=== PATIENT | female | born 1995 | race Asian ===

== ENCOUNTER 2017-04-19 18:36 | Emergency (ER) | payer SELFPAY ==
[2017-04-19] MEDS ORDERED: NS 1,000 ML IV ONE (18:46)
--- NOTE | 2017-04-19 18:46 | EDPHY ---
H & P Time Seen by Provider: 04/19/17 18:37 HPI/ROS: CHIEF COMPLAINT: M1, "trying to starve myself to " HISTORY OF PRESENT ILLNESS: 22-year-old female history of depression, not on antidepressants, arrives via ambulance on an M1 hold stating that she has stopped eating or drinking for the past 3 days trying "starve herself to ". Denies self-injury. She has not been taking her levothyroxine. Denies hallucination. Denies self-injury. Denies complaints of physical pain or discomfort. REVIEW OF SYSTEMS: A ten point review of systems was performed and is negative with the exception of the items mentioned in the HPI PAST MEDICAL & SURGICAL HISTORY: Depression. Hypothyroidism SOCIAL HISTORY:nonsmoker. No alcohol or drug use. PHYSICAL EXAM (Prior to examination, patient consented to physical exam, hands were washed and my usual and customary physical exam procedures followed) 1) GENERAL: Well-developed, well-nourished, alert and oriented. 2) HEAD: Normocephalic, atraumatic 3) HEENT: Pupils equal, round, reactive to light bilaterally. Sclera anicteric. Nasopharynx, oropharynx, clear, no lesions. Dry mucous membranes 4) NECK: Full range of motion, no meningeal signs. 5) LUNGS: Clear auscultation bilaterally, no wheezes, no rhonchi, no retractions. 6) HEART: Regular rate and rhythm, no murmur, no heave, no gallop. 7) ABDOMEN: No guarding, no rebound, no focal tenderness, negative McBurney's, negative Zuniga's, negative Rovsing's, negative peritoneal sign, 8) MUSCULOSKELETAL: Moving all extremities, no focal areas of tenderness, no obvious trauma. No peripheral edema or discoloration. 9) BACK: No CVA tenderness, no midline vertebral tenderness, no fluctuance, no step-off, no obvious trauma, no visual or palpable abnormality. 10) SKIN: No rash, no petechiae. 11) Psychiatric: Patient is oriented X 3, there is no agitation. Tearful, depressed flat affect DIFFERENTIAL DIAGNOSIS: in no particular order including but limited to hypovolemia, depression, suicidal ideation (Donna,D Anabell) Constitutional: Initial Vital Signs Temperature (C) 37 C 04/19/17 18:53 Heart Rate 92 04/19/17 18:53 Respiratory Rate 16 04/19/17 18:53 Blood Pressure 142/85 H 04/19/17 18:53 O2 Sat (%) 97 04/19/17 18:53 O2 Delivery Mode Room Air Allergies/Adverse Reactions: No Known Allergies Allergy (Unverified 04/19/17 19:09) Home Medications: Medication Instructions Recorded Levothyroxine 04/19/17 Medical Decision Making ED Course/Re-evaluation: 6:45 p.m.: Patient states that she has not eaten or drank in 3 days. Will administer IV hydration for suspected volume depletion, check laboratory studies and consult with mental health manager oracle.Care of patient under supervision of secondary supervising physician Dr Gracía . (Reid Thompson) The patient was evaluated and managed by the physician's reference assistant. My cosignature indicates that I reviewed the chart and I agree with the findings and plan of care as documented. I am the secondary supervising physician. ( Letitia García) 1248: This patient been evaluated by mental health. And psychiatry was consulted for care. They would like to discharge her from the emergency room. She denies wanting to be suicidal wanting to harm herself or anybody else. She contracts for safety. She will be given follow-up resources. I did go and see speak with her. She has no complaints. She denies being suicidal wanting to hurt herself or anybody else. with psychiatry was consulted (Fabrice Gallardo) - Data Points Laboratory Results: Laboratory Results 04/19/17 18:54 04/19/17 18:54 04/19/17 04/19/17 04/19/17 19:40 18:54 18:54 WBC RBC Hgb Hct MCV MCH MCHC RDW Plt Count MPV Neut % (Auto) Lymph % (Auto) Porter % (Auto) Eos % (Auto) Baso % (Auto) Nucleat RBC Rel Count Absolute Neuts (auto) Absolute Lymphs (auto) Absolute Monos (auto) Absolute Eos (auto) Absolute Basos (auto) Absolute Nucleated RBC Immature Gran % Immature Gran # Sodium 144 mEq/L mEq/L (134-144) Potassium 4.4 mEq/L mEq/L (3.5-5.2) Chloride 104 mEq/L mEq/L (97-110) Carbon Dioxide 19 mEq/l L mEq/l (22-31) Anion Gap 21 mEq/L H mEq/L (8-16) BUN 15 mg/dL mg/dL (7-23) Creatinine 0.8 mg/dL mg/dL (0.6-1.0) Estimated GFR > 60 Glucose 64 mg/dL L mg/dL (70-100) Calcium 10.4 mg/dL mg/dL (8.5-10.4) TSH 1.990 uIU/mL uIU/mL (0.465-4.680) Beta HCG, Qual NEGATIVE Salicylates < 1.0 mg/dL L mg/dL (2.0-20.0) Urine Opiates Screen NEGATIVE (NEGATIVE) Acetaminophen < 10 mcg/mL L mcg/mL (10-30) Urine Barbiturates NEGATIVE (NEGATIVE) Ur Phencyclidine Scrn NEGATIVE (NEGATIVE) Ur Amphetamine Screen NEGATIVE (NEGATIVE) U Benzodiazepines Scrn NEGATIVE (NEGATIVE) Urine Cocaine Screen NEGATIVE (NEGATIVE) U Marijuana (THC) Screen NEGATIVE (NEGATIVE) Ethyl Alcohol < 10 mg/dL mg/dL (0-10) 04/19/17 18:54 WBC 9.55 10^3/uL H 10^3/uL (3.80-9.50) RBC 5.37 10^6/uL H 10^6/uL (4.18-5.33) Hgb 16.5 g/dL H g/dL (12.6-16.3) Hct 48.1 % H % (38.0-47.0) MCV 89.6 fL fL (81.5-99.8) MCH 30.7 pg pg (27.9-34.1) MCHC 34.3 g/dL g/dL (32.4-36.7) RDW 12.0 % % (11.5-15.2) Plt Count 296 10^3/uL 10^3/uL (150-400) MPV 11.0 fL fL (8.7-11.7) Neut % (Auto) 74.5 % H % (39.3-74.2) Lymph % (Auto) 19.0 % % (15.0-45.0) Porter % (Auto) 5.2 % % (4.5-13.0) Eos % (Auto) 0.3 % L % (0.6-7.6) Baso % (Auto) 0.8 % % (0.3-1.7) Nucleat RBC Rel Count 0.0 % % (0.0-0.2) Absolute Neuts (auto) 7.11 10^3/uL H 10^3/uL (1.70-6.50) Absolute Lymphs (auto) 1.81 10^3/uL 10^3/uL (1.00-3.00) Absolute Monos (auto) 0.50 10^3/uL 10^3/uL (0.30-0.80) Absolute Eos (auto) 0.03 10^3/uL 10^3/uL (0.03-0.40) Absolute Basos (auto) 0.08 10^3/uL 10^3/uL (0.02-0.10) Absolute Nucleated RBC 0.00 10^3/uL 10^3/uL (0-0.01) Immature Gran % 0.2 % % (0.0-1.1) Immature Gran # 0.02 10^3/uL 10^3/uL (0.00-0.10) Sodium Potassium Chloride Carbon Dioxide Anion Gap BUN Creatinine Estimated GFR Glucose Calcium TSH Beta HCG, Qual Salicylates Urine Opiates Screen Acetaminophen Urine Barbiturates Ur Phencyclidine Scrn Ur Amphetamine Screen U Benzodiazepines Scrn Urine Cocaine Screen U Marijuana (THC) Screen Ethyl Alcohol Medications Given: Discontinued Medications Sodium Chloride (Ns) 1,000 mls @ 0 mls/hr IV ONCE ONE PRN Reason: Wide Open Stop: 04/19/17 18:47 Last Admin: 04/19/17 18:56 Dose: 1,000 mls Departure - Departure Disposition: Home, Routine, Self-Care Clinical Impression: Volume depletion, Suicidal ideations Condition: Good Instructions: Dehydration (ED) Additional Instructions: 1. If you have further thoughts of wanting to hurt herself or anybody else thoughts of suicide please immediately return to the emergency room. 2. Additionally please follow up with resources were given here in the emergency room. Referrals: Patient,NotPresent [Unknown] - As per Instructions
[2017-04-19 18:57] VITALS: RESP 16; TEMP 98.6
[2017-04-19 19:01] LABS: % IMMATURE GRANULYOCYTES 0.2 % (0.0-1.1); ABSOLUTE IMMATURE GRANULOCYTES 0.02 10^3/uL (0.00-0.10); ADD DIFF? NO; ADD MORPH? NO; ADD SCAN? NO; ATYPICAL LYMPHOCYTE FLAG 0 (0-99); FRAGMENT RBC FLAG 0 (0-99); HEMATOCRIT 48.1 % (38.0-47.0); HEMOGLOBIN 16.5 g/dL (12.6-16.3); LEFT SHIFT FLG 0 (0-99); LIPEMIA HEMOLYSIS FLAG 90 (0-99); MEAN CELL HEMOGLOBIN 30.7 pg (27.9-34.1); MEAN CELL HEMOGLOBIN CONCENTR. 34.3 g/dL (32.4-36.7); MEAN CELL VOLUME 89.6 fL (81.5-99.8); PLATELET CLUMPS FLAG 0 (0-99); PLATELET COUNT 296 10^3/uL (150-400); RED BLOOD CELL COUNT 5.37 10^6/uL (4.18-5.33)
[2017-04-19 19:18] LABS: ANION GAP 21 mEq/L (8-16); CALCIUM 10.4 mg/dL (8.5-10.4); CARBON DIOXIDE 19 mEq/l (22-31); CHLORIDE 104 mEq/L (97-110); CREATININE 0.8 mg/dL (0.6-1.0); ETHANOL SERUM < 10 mg/dL (0-10); GLOMERULAR FILTRATION RATE > 60; GLUCOSE 64 mg/dL (70-100); POTASSIUM 4.4 mEq/L (3.5-5.2); SALICYLATE < 1.0 mg/dL (2.0-20.0); SODIUM 144 mEq/L (134-144)
[2017-04-20 01:41] VITALS: BP 131/80; PULSE 67; O2SAT 96
== END 2017-04-20 01:40 | disposition home or self-care (01) ==
LOC: EEVIPCON 18:36
DX: R45.851 Suicidal ideations (principal); E86.9 Volume depletion, unspecified
CPT/HCPCS: 80305; G0480

== ENCOUNTER 2017-04-27 17:01 | Inpatient (IN) | payer BC ==
[2017-04-27 17:33] LABS: ADD DIFF? NO; ADD MORPH? NO; ADD SCAN? NO; ATYPICAL LYMPHOCYTE FLAG 40 (0-99); FRAGMENT RBC FLAG 0 (0-99); HEMATOCRIT 45.3 % (38.0-47.0); HEMOGLOBIN 15.2 g/dL (12.6-16.3); LEFT SHIFT FLG 0 (0-99); LIPEMIA HEMOLYSIS FLAG 80 (0-99); MEAN CELL HEMOGLOBIN 30.2 pg (27.9-34.1); MEAN CELL HEMOGLOBIN CONCENTR. 33.6 g/dL (32.4-36.7); MEAN CELL VOLUME 90.1 fL (81.5-99.8); MEAN PLATELET VOLUME 10.8 fL (8.7-11.7); PLATELET CLUMPS FLAG 0 (0-99); PLATELET COUNT 283 10^3/uL (150-400); RED BLOOD CELL COUNT 5.03 10^6/uL (4.18-5.33)
[2017-04-27 18:00] LABS: ANION GAP 19 mEq/L (8-16); CALCIUM 10.2 mg/dL (8.5-10.4); CARBON DIOXIDE 22 mEq/l (22-31); CHLORIDE 99 mEq/L (97-110); CREATININE 0.7 mg/dL (0.6-1.0); ETHANOL SERUM < 10 mg/dL (0-10); GLOMERULAR FILTRATION RATE > 60; GLUCOSE 86 mg/dL (70-100); SALICYLATE < 1.0 mg/dL (2.0-20.0); SODIUM 140 mEq/L (134-144)
--- NOTE | 2017-04-27 18:10 | EDPHY ---
General - History Smoking Status: Never smoked Narrative: CHIEF COMPLAINT: SI HISTORY OF PRESENT ILLNESS: Patient presents on an M1 hold the reports of suicidal ideation. She admits to feeling more suicidal over the past 2 weeks. She has had thoughts of stabbing herself, starting herself and overdosing on her thyroid medication. She tried to stab herself but could not go through with. She did go several days without food 1 point. She denies taking excess levothyroxine today. 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 The subway repair supervisor provided her the caps information. She did present to [facility], which she was evaluated and placed on an M1 hold by psychologist. She does express intent and states that she would kill herself if she went home. She has previous suicide attempts in the past by overdose. She denies any formal diagnoses. No other associated complaints or modifying factors PSYCHIATRIC DIAGNOSES: Denies PRIOR PSYCHIATRIC EVALUATIONS: Will not specify M1/DETAINER: Prior to arrival By licensed psychologist at 4:23 p.m., 11/2016 REVIEW OF SYSTEMS: Ten systems reviewed and are negative unless otherwise noted in the HPI EXAMINATION General Appearance: Alert, no distress Head: normocephalic, atraumatic Eyes: Pupils equal and round, no conjunctival pallor or injection. EOMs intact. ENT, Mouth: Mucous membranes moist. Airway patent Neck: Normal inspection, supple, non-tender Respiratory: Lungs are clear to auscultation. No wheezing or rhonchi or crackles Cardiovascular: Regular rate and rhythm. No murmur Gastrointestinal: Abdomen is soft and nontender Back: non-tender, no bony abnormalities Neurological: GCS 15. A&O, nonfocal, normal gait Skin: Warm and dry, no rash. No lacerations to the forearms. Extremities: Nontender, no pedal edema Psychiatric: Flat affect. Depressed mood. Admits to suicidal ideation with thoughts of overdosing on levothyroxine, starving herself and stabbing herself. Denies any alcohol ingestion or methamphetamine use. DIFFERENTIAL DIAGNOSES: Including but not limited to suicidal ideation, homicidal ideation, hypothyroid , depression, anxiety MDM: 5:40 p.m. Suicidal ideation with intent to kill herself by overdose on levothyroxine. She does express intent. She does not express remorse. She does agree the M1 documentation that she would do so if sent home. Cooperative. No acute distress. She denies any alcohol or methamphetamine use. 7:00 p.m. At this time the patient has been medically cleared and is currently being evaluated by [facility]. 8:00 p.m. Patient is resting comfortably in no acute distress. Awaiting the recommendation from oracle application architect 8:45 p.m. RN notified me that the patient has tentatively been accepted to [address] [place] [address]. We are awaiting the final acceptance information from the evaluated. 9:09 p.m. Patient has been accepted to [address] [place] [address] inpatient care. Accepting physician is Dr. Crowe. EMTALA form has been completed and signed by Dr. Stevens. She remains calm and cooperative. She will be transferred in stable condition. (Timmy Pizarro) The patient was evaluated and managed by the physician unit assistant. I have reviewed this chart and I agree with the findings and plan of care as documented , as indicated by my signature. I am the secondary supervising physician. ( Bernarda Stevens) - Objective Vital Signs: Initial Vital Signs Temperature (C) 36.9 C 04/27/17 17:05 Heart Rate 57 L 04/27/17 17:05 Respiratory Rate 16 04/27/17 17:05 Blood Pressure 135/84 H 04/27/17 17:05 O2 Sat (%) 98 04/27/17 17:05 O2 Delivery Mode Room Air Allergies/Adverse Reactions: No Known Allergies Allergy (Unverified 04/19/17 19:09) Home Medications: Medication Instructions Recorded Levothyroxine [Synthroid 50 mcg 50 mcg PO DAILY06 04/27/17 (*)] Laboratory Results: Laboratory Results 04/27/17 17:30 04/27/17 17:30 04/27/17 04/27/17 04/27/17 18:20 17:30 17:30 WBC RBC Hgb Hct MCV MCH MCHC RDW Plt Count MPV Neut % (Auto) Lymph % (Auto) Emery % (Auto) Eos % (Auto) Baso % (Auto) Nucleat RBC Rel Count Absolute Neuts (auto) Absolute Lymphs (auto) Absolute Monos (auto) Absolute Eos (auto) Absolute Basos (auto) Absolute Nucleated RBC Immature Gran % Immature Gran # Sodium 140 mEq/L mEq/L (134-144) Potassium 4.0 mEq/L mEq/L (3.5-5.2) Chloride 99 mEq/L mEq/L (97-110) Carbon Dioxide 22 mEq/l mEq/l (22-31) Anion Gap 19 mEq/L H mEq/L (8-16) BUN 12 mg/dL mg/dL (7-23) Creatinine 0.7 mg/dL mg/dL (0.6-1.0) Estimated GFR > 60 Glucose 86 mg/dL mg/dL (70-100) Calcium 10.2 mg/dL mg/dL (8.5-10.4) TSH 1.500 uIU/mL uIU/mL (0.465-4.680) Beta HCG, Qual NEGATIVE Salicylates < 1.0 mg/dL L mg/dL (2.0-20.0) Urine Opiates Screen NEGATIVE (NEGATIVE) Acetaminophen < 10 mcg/mL L mcg/mL (10-30) Urine Barbiturates NEGATIVE (NEGATIVE) Ur Phencyclidine Scrn NEGATIVE (NEGATIVE) Ur Amphetamine Screen NEGATIVE (NEGATIVE) U Benzodiazepines Scrn NEGATIVE (NEGATIVE) Urine Cocaine Screen NEGATIVE (NEGATIVE) U Marijuana (THC) Screen NEGATIVE (NEGATIVE) Ethyl Alcohol < 10 mg/dL mg/dL (0-10) 04/27/17 17:30 WBC 5.57 10^3/uL 10^3/uL (3.80-9.50) RBC 5.03 10^6/uL 10^6/uL (4.18-5.33) Hgb 15.2 g/dL g/dL (12.6-16.3) Hct 45.3 % % (38.0-47.0) MCV 90.1 fL fL (81.5-99.8) MCH 30.2 pg pg (27.9-34.1) MCHC 33.6 g/dL g/dL (32.4-36.7) RDW 12.0 % % (11.5-15.2) Plt Count 283 10^3/uL 10^3/uL (150-400) MPV 10.8 fL fL (8.7-11.7) Neut % (Auto) 63.7 % % (39.3-74.2) Lymph % (Auto) 28.9 % % (15.0-45.0) Emery % (Auto) 5.4 % % (4.5-13.0) Eos % (Auto) 1.1 % % (0.6-7.6) Baso % (Auto) 0.9 % % (0.3-1.7) Nucleat RBC Rel Count 0.0 % % (0.0-0.2) Absolute Neuts (auto) 3.55 10^3/uL 10^3/uL (1.70-6.50) Absolute Lymphs (auto) 1.61 10^3/uL 10^3/uL (1.00-3.00) Absolute Monos (auto) 0.30 10^3/uL 10^3/uL (0.30-0.80) Absolute Eos (auto) 0.06 10^3/uL 10^3/uL (0.03-0.40) Absolute Basos (auto) 0.05 10^3/uL 10^3/uL (0.02-0.10) Absolute Nucleated RBC 0.00 10^3/uL 10^3/uL (0-0.01) Immature Gran % 0.0 % % (0.0-1.1) Immature Gran # 0.00 10^3/uL 10^3/uL (0.00-0.10) Sodium Potassium Chloride Carbon Dioxide Anion Gap BUN Creatinine Estimated GFR Glucose Calcium TSH Beta HCG, Qual Salicylates Urine Opiates Screen Acetaminophen Urine Barbiturates Ur Phencyclidine Scrn Ur Amphetamine Screen U Benzodiazepines Scrn Urine Cocaine Screen U Marijuana (THC) Screen Ethyl Alcohol Departure - Departure Disposition: [facility] IP Clinical Impression: Suicidal ideation Condition: Fair
[2017-04-27] MEDS ORDERED: MAG HYDROX/AL HYDROX/SIMETH 30 ML UDCUP PO PRN (22:57)
[2017-04-27] MEDS ORDERED: LORazepam 0.5 MG TAB PO PRN (22:57)
[2017-04-27] MEDS ORDERED: ACETAMINOPHEN 325 MG TAB PO PRN (22:57)
[2017-04-27] MEDS ORDERED: MAGNESIUM HYDROXIDE 30 ML UDCUP PO PRN (22:57)
[2017-04-27] MEDS ORDERED: NICOTINE POLACRILEX 2 MG GUM B PRN (22:57)
[2017-04-27] MEDS ORDERED: traZODone 50 MG TAB PO PRN (23:01)
[2017-04-28] MEDS: LEVOTHYROXINE 50 MCG TAB PO SCH (10:49)
--- NOTE | 2017-04-28 14:05 | ASDISCHSUM ---
Discharge Information Plan Status:Psych Placement/Petitioned Medically Cleared to Leave:04/26/2017 Discharge Date:04/27/2017 10:33 PM CM D/C Disposition: ADT D/C Disposition:[facility] Projected Discharge Date:04/27/2017 12:00 AM Transportation at D/C: Discharge Delay Reason: Follow-Up Date:04/27/2017 12:00 AM Discharge Slot: Final Diagnosis: Placement Information Patient Contact Information Contact Name:CORINA Relationship:Father Address:[id number] Work Phone: City:[facility] Phone: State/Zip Code:[place] [address] Email: Financial Information Financial Class:HMO and PPO Plans Primary Plan Desc: OUT OF STATE PPO Primary Plan Number:[id number] Secondary Plan Desc: Secondary Plan Number: Assessment Information Intervention Information
--- NOTE | 2017-04-28 14:50 | BCON ---
[f rep st] BEHAVIORAL HEALTH CONSULTATION INTERNAL MEDICINE CONSULTATION DATE OF CONSULTATION: 04/28/2017 REFERRING PHYSICIAN: KATHLEEN CISNEROS MD REASON FOR REFERRAL: Medical clearance for inpatient behavioral health stay. HISTORY OF PRESENT ILLNESS: This patient was brought to the [facility] Emergency Department on an M1 hold from [facility] at the [facility]. She had depression and suicidal ideation. She was evaluated by the Mental Health team and admitted for further psychiatric care. She currently is without any acute complaints. PAST MEDICAL HISTORY: Hypothyroidism. PAST SURGICAL HISTORY: She has not had surgeries. MEDICATIONS: Levothyroxine 50 mcg p.o. daily. ALLERGIES: There are no known drug allergies. SOCIAL HISTORY: She is a student at the [employer]. She lives with roommates. She is a nonsmoker and nondrinker. FAMILY HISTORY: Noncontributory. REVIEW OF SYSTEMS: She reports weight loss. One of the things that she was doing with her suicidality was ceasing to eat and drink. She reports she has continued the same dose of levothyroxine, even when she was not eating or drinking. She denies insomnia or sleep disturbance. She reports that she has felt sweaty and shaky. She is not in pain. She has no cough or dyspnea. She has no chest pain or palpitations. There is no nausea, vomiting, constipation, or diarrhea. Otherwise, a 10-point review of systems was negative. PHYSICAL EXAM: VITAL SIGNS: Blood pressure is 113/54, heart rate is 54, respiratory rate is 12, oxygen saturation is 95% on room air. Temperature is 36.6 degrees centigrade. Her weight is 61.2 kg for a body mass index of 23.2. GENERAL: This is a well-nourished, well-developed woman, appears her chronologic age, cooperative and in no acute distress. HEENT: Extraocular movements are intact. Pupils are equal, round, reactive to light. Mucous membranes are moist. Dentition is in good condition. There are no oropharyngeal mucosal lesions, and no posterior oropharyngeal mucus. NECK: Supple with no thyromegaly. HEART: Regular rate and rhythm with no murmurs, rubs, or gallops. LUNGS: Clear to auscultation bilaterally. ABDOMEN: Benign. EXTREMITIES: There is no cyanosis, clubbing, or edema. NEUROLOGIC: She is alert and oriented x3. Cranial nerves 2 through 12 are grossly intact. There is no focal weakness. Sensation is intact to light touch and deep tendon reflexes are 2+ bilaterally at the biceps tendons. LABORATORY STUDIES: Drawn in the emergency department, CBC was entirely within normal limits. Serum chemistry showed a very slight anion gap at 19; otherwise , renal function and electrolytes were within normal limits. TSH was normal at 1.5, and beta hCG was negative for . Toxicology screen in the serum was negative for salicylates, acetaminophen or ethyl alcohol, and the urine was negative for any substances of abuse. ASSESSMENT/RECOMMENDATIONS: 1. Mental health issues. Pending further evaluation and management per Psychiatry and the Mental Health team. 2. Hypothyroidism. Though she has some symptoms that might be referable to the thyroid, her TSH is normal, so doubt that any thyroid abnormalities are contributing to her emotional state. 3. Weight loss, likely due to depression. Observe for return of normal eating habits. I see no medical contraindications to this patient's continued stay in the inpatient behavioral health unit or to any psychiatric medications or procedures. Thank you very much for including me in the care of this patient. Please do not hesitate to contact me or the Hospitalist service should there be need for further medical evaluation. /[id number]/MODL MTDD
--- NOTE | 2017-04-28 16:49 | BAPA ---
[f rep st] ADMISSION PSYCHIATRIC ASSESSMENT DATE OF SERVICE: 04/28/2017 CHIEF COMPLAINT: "Due to my circumstances and stress I can not be safe." HISTORY OF PRESENT ILLNESS: The patient is a 22-year-old Maori Nepalese female , a sophomore at . She was brought to the emergency department by [facility] on an M1, which states: "Erlinda has expressed ongoing active suicidal ideation lasting 2 weeks. She reported a significant increase in suicidality and could not keep herself safe. She reported that she would overdose on prescription medications if [facility]. She reports having the means and is unwilling to remove access to means." The patient was placed on an M1 hold by therapist through the [facility] program at . Supposedly, according to the emergency department note, the patient was feeling more suicidal over the past 2 weeks. She had thoughts of stabbing herself, starving herself, and overdosing on her thyroid medication. 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 The cemetery workers supervisor provided her information for [facility]. She presented to [facility] and was seen through crisis evaluation and placed on an M1 hold by a psychologist. The patient had previously presented to [facility] Emergency Department on the and at that time, the patient's chief complaint was "I am trying to starve myself to . " Dr. Letitia García noted that the patient was a 22-year-old female, not on antidepressants who arrived via ambulance on an M1 hold stating that she had stopped eating for the past 3 days, trying to "starve herself to ." She denies self-injury. She has not been taking her levothyroxine. She denies any self-injury. The patient was evaluated by a mental health worker and Psychiatry was consulted for care. She denies wanting to be suicidal or wanting to harm herself any longer or hurt anybody else. She is able to contract for safety. She was given followup resources through [facility] program at [facility] and through the [facility]. So obviously the patient did not follow up with the recommendations when she was discharged from the emergency department on the and did not seek treatment at [facility] until the when she was referred there by her cemetery workers supervisor. When this physician met with Erlinda on the inpatient behavioral services unit on , she was less depressed looking. She had a normal range of affect. She admitted that she had not followed up with the recommendations when she was discharged from the emergency department and said that her first visit with [facility] was on the , and she was immediately sent to the hospital. She said that the circumstances that led up to her having more increased suicidal ideation over the past 2 weeks have to do with she said "circumstances and stress in my life." She listed 3 significant stressors that were bothering her and making her feel more depressed. She said the #1 stressor was feeling humiliated and not supported by her roommates. She said that on April 16, she was contemplating suicide, and she said "I tried to stab myself." When she went on to explain what actually happened, she did not actually make a suicide attempt, but she made a suicidal gesture. She says "I was talking about how depressed I was to my roommates." She said "I grabbed a knife and held it up to my stomach and ran to the bathroom with a knife and locked myself in there." She said that when she initially grabbed the knife and held it up to her stomach she said "My friends did not seem to care at all" that she was going to hurt herself. So she said that is when she "ran into the bathroom" because she was so upset because "My friends did not seem to care about me at all." She also says "My friends were not very supportive," and she said that later she came out of the bathroom. She had not injured herself in any way. She had not cut herself with a knife. She had laid the knife down on the counter, and she said she walked away. She said that she " felt humiliated " by her friend's reactions and said that she has not been on good terms with them ever since then. She said that is the main reason that she does not feel safe or comfortable in her apartment and that when she is in her apartment and she is around her friends she feels worse and is "more depressed," and she says she starts "thinking more about not wanting to be alive," but she denies formulating any intent or having any intent to act on any of the thoughts that she has had during the past 2 weeks. She said that besides the humiliation that she felt and the lack of support from her friends, she said the other significant stressor over the past 2 weeks for her has been that she feels like her roommates are turning her other friends " against me." So she says that wherever she goes she feels like her other friends are not treating her the same because they have heard about what happened with the knife from her roommates, and she says that makes her feel even more humiliated, and she says she started to feel more guilty and remorseful for what happened. She said that the third significant stressor is financial stress. She said that her parents are "constantly working to make money" in order to pay for her education. She says that she feels very guilty because she feels like "like I am draining, all of my parents' money goes to me. " When physician asks about times during the last 2 weeks when the patient actually was not feeling depressed, she said that when she was at home over she did not feel depressed or suicidal. She said she was not suicidal when she was at her parents' house. She said that she stayed there for several days and that Thursday was the day that she was supposed to return back to her apartment. She was doing a work study job on campus and that she talked to her cemetery workers supervisor about what had been going on and about feeling depressed and that is when her cemetery workers supervisor said she should go to the [facility] program. She went to [facility], and the reason she said was that if she had to go home she would try to hurt herself and was because she said that she just could not face dealing with her roommates, and she felt the situation between them had gotten so tense that she did not want to have anything to do with them and that was making her so anxious that she thought that she would impulsively do something to try to hurt herself if she had to go back to her apartment. In her own words she said that the main trigger for her suicidal thoughts was "anxiety about going back to my apartment and seeing my roommates." PAST PSYCHIATRIC HISTORY: The patient states that she started having thoughts about suicide when she was around 14 years old in the 6th grade. She said her family moved to [place], and she said, "A lot of things were changing. I moved schools. I changed neighborhoods." She says that the main reason she felt sad and depressed at that time was "I could not make any new friends" at her new school. She said that throughout her adolescence things were difficult. She never had a lot of friends. She never felt socially supported. She said that she always had a difficult time communicating with her parents because her parents only speaks Maori and she felt like that "language was always a barrier " to communication. So she said that she was not able to rely or confide in her parents. She said when she was about a phillip in high school that she was very withdrawn, isolating, spending a lot of time in her bedroom crying a lot, and her grades in school were failing. She says that her parents noticed the change in her behavior and were concerned and that they set up an appointment with her to see a private therapist. She said that she saw that therapist for several months. She said it was helpful at that time in dealing with a lot of the stress that she was under, but said that when school got really busy at the end of phillip year and she was making plans for applying to colleges that she did not have time anymore to see therapist, and so she stopped going. She says that senior year of high school and freshman year of college were "much better" for her. She said that she did not have these episodes of depression and did not have thoughts about suicide. She did not seek out any mental health services because she did not feel like she needed it. She said that during that time her mood was stable. She denies depression. There were no signs or symptoms of any other psychiatric illness, and she denies having any thoughts, intent or plans to hurt herself or anyone else during that time. She has no prior history of self-injurious behavior. She said that things got bad for her this year because she was struggling more in school and particularly because of the stressors that she mentioned. Her relationships with her peers were not good. She was not getting as much social support as she would like, and she was having more financial stress and guilt about her parents paying for her education. She has never been on any psychiatric medications. She has also never been admitted to any psychiatric inpatient facilities or done any type of outpatient treatment, other than the brief few months of therapy that she got in the 11th grade. ALLERGIES: The patient has no known drug allergies. CURRENT MEDICATIONS: The only medicine that the patient takes is levothyroxine and she is on 50 mcg daily. PAST MEDICAL HISTORY: Noncontributory. The only problem that the patient has is thyroid, and she is on medication for that. She has no history of TBIs, no concussions. PAST SURGICAL HISTORY: None. SOCIAL HISTORY: Patient's parents moved to the [place] from [place] in the 1980s. The patient was [place] Her parents speak Maori, and the patient says that although she knows some Maori, there is sometimes "a language barrier." The patient's parents are both living in [place]. She has a 21-year-old brother who is living in [place]. The patient noted that there is a cultural differences in beliefs about depression. She is afraid of what her parents will think of her if they find out she has depression or has had suicidal thoughts in the past. She does not want her parents to know where she is or what she is going through. The patient is a sophomore at . The patient says that when she was growing and she was younger, there was a lot of yelling at home and sometimes things were thrown. This would frighten she and her brother. She considers herself close to both of her parents now though. She is not currently in a relationship. She does not have any children. She is living in student housing with a roommate. She indicates that she thought they were her friends, but ever since the episode with the knife in the middle of April, she does not feel comfortable around them, and she says this is the biggest stressor in her living situation right now. She says she does not have very many other friends outside of her roommates, and there is really nobody that she feels that she can trust to talk to about her mental health problems. 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 She has no legal issues. SUBSTANCE USE HISTORY: The patient says that she smoked marijuana once in freshman year and not since then. She says that she drinks alcohol about once a month. She tripped she drinks 1-2 drinks. She says that she never drinks to the point of intoxication. She does smokes nicotine cigarettes, but very infrequently. She says she has about 1 cigarette every week or so. FAMILY HISTORY: She says that her mother has told her that she has struggled with depression in the past. Her mother briefly saw a therapist at the same time the patient was going to her therapist in 11th grade, but was never treated with medications. According to the patient, her mother has said that depression runs on her side of the family, but the patient does not know anything about her dad's side of the family. There does not seem to be any history of substance use that the patient is aware of in the family. LABORATORY DATA: Admission laboratories were done in the emergency department. Her white cell count was 5.57. Hemoglobin was 15.2. Hematocrit was 45.3. Platelet count was 283. Sodium was 142. Potassium was 4.0. Chloride was 99. Carbon dioxide was 22. BUN was 12. Creatinine 0.7. Glucose was 86. Calcium 10.2. TSH was 1.5 Beta hCG was negative. Her urine toxicology screen was negative for all substances of abuse. A salicylate and acetaminophen level were both undetected. MENTAL STATUS EXAMINATION: This is a thin, though healthy-looking Maori Nepalese female. She interacts well with the examiner. Her speech is spontaneous and fluent. Her affect shows normal range of affect. Her mood she says is "depressed." Her thought process is linear and goal directed. Her thought content reveals no evidence of psychosis. No evidence of dianelys. She denies any thoughts currently about hurting herself. She denies any intent or plan to act on. She has no urges and no intent or plan to hurt herself or anyone else at the current time. She is alert and oriented x4. She does report feeling sad, but not as depressed or hopeless as she was feeling before she came into the hospital. Her intellect appears to be average, based upon education, occupational history, fund of knowledge and vocabulary. 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 IMPRESSION/DIAGNOSES: 1. Major depressive disorder, recurrent, severe. 2. Psychosocial stressors include lack of social support, conflict with her roommates, financial stress, strained relationship with her parents, partly cultural, and due to language barrier. PLAN OF TREATMENT: 1. Admit the patient to the behavioral health services, inpatient unit on an M1 hold. 2. Monitor closely for safety and on suicide precautions. 3. Physician spent some time talking with the patient about the possibility of taking selective serotonin reuptake inhibitor. Physician reviewed the risks, benefits, and side effects of medications. I explained that the best course of action for the patient would be a trial of an antidepressant along with cognitive behavioral or similar type therapy, since most of the patient's depression is related to situational stressors. Physician explained how learning new coping skills and tools for dealing with setbacks and conflict in interpersonal relationships and stressors related to academics and finances would be extremely beneficial to the patient. The patient acknowledged that therapy would be something she would be willing to try, but she said that she was not willing to commit to trying medications at this time. She said "I would like to think about it some more." Physician did provide her some educational handouts to read about Prozac. 4. The patient will engage in individual, group, and milieu therapies. 5. Estimated length of stay is 2-3 days. The followup will most likely be with Claude for ongoing therapy that the patient said she would be willing to do individual, and physician also recommended group therapy as well. /[id number]/MODL MTDD
[2017-04-29] MEDS: LEVOTHYROXINE 50 MCG TAB PO SCH (09:52)
--- NOTE | 2017-04-29 15:55 | SOAPPROG ---
SOAP Progress Note Assessment/Plan: Assessment: 22 yo female with h/o depression as teenager. She has been feeling depressed for past couple months d/t situational stressors, primarily feeling "humiliated " and ostracized by her friends/roommates. She presented to ED on 04/17/17 and was referred to [facility] for therapy, but she didn't go. She was sent to [facility] for crisis evaluation by her work study senior production supervisor on 04/27/17 and placed on d/t SI "if she had to return to her apartment." Plan: 04/29/17 15:52 1. Patient reports she spoke to [facility] today and feels "much better" after telling him what's been going on with her. She denies any thoughts, plan or intent to harm herself. 2. Patient continues to decline medications for mood. She is interested in seeing her former therapist, Alysia Kendrick, in [place] after discharge. 3. Patient will d/c tomorrow. She plans to stay at parents house until end of . Subjective: Met with patient, reviewed chart and d/w staff. Patient reports she called her [facility] this morning and told him where she was. She also explained how depressed she has been feeling and about her SI. She said [facility] was very understanding and told her "everything will be alright." He encouraged her to stay at parents' house instead of returning to her apartment. Patient says, "I'm not having any urges to hurt myself." She denied any thoughts, plan or intent to hurt herself or anyone else. She is feeling more optimistic and future oriented. Patient says she is hesitant to start any meds right now. She says, "I'll wait on meds. " Objective: Vital Signs Temp Pulse Resp BP Pulse Ox 36.6 C 54 L 14 108/64 96 04/29/17 06:00 04/29/17 06:00 04/29/17 06:00 04/29/17 06:00 04/29/17 06:00 MSE: Affect: Brighter, tearful when discussing her phone call with [facility] Mood: "Better" TP: Linear TC: Denies any SI/HI, no AH/VH Insight/Judgment: Fair - Time Spent With Patient Time Spent With Patient: 20" - Pending Discharge Pending Discharge Within 24 Hours: Yes Pending Discharge Within 48 Hours: No Pending Discharge Date: 04/30/17 (Likely to d/c home with parents tomorrow) Pending Discharge Time: 11:00 ICD10 Worksheet Patient Problems: Problems Problem Status Onset Depressive disorder Acute Hypothyroidism Acute Suicidal ideation Acute
[2017-04-30 06:39] VITALS: PULSE 64; RESP 16; TEMP 97.4; O2SAT 97
[2017-04-30 06:43] VITALS: BP 121/70
[2017-04-30] MEDS: LEVOTHYROXINE 50 MCG TAB PO SCH (09:55)
--- NOTE | 2017-04-30 20:07 | BDS ---
[f rep st] BEHAVIORAL HEALTH DISCHARGE SUMMARY REASON FOR ADMISSION: This is a 22-year-old [place] female sophomore at . She was brought to the emergency department by police on an M1 hold, which states "Erlinda has expressed ongoing acti ve suicidal ideation lasting 2 weeks. She reported a significant increase in suicidality and could n ot keep herself safe." The patient had thoughts of stabbing herself, starving herself and overdosing on her thyroid medication. She told a scouring pads supervisor at work on 04/27/2017 and was referred to the [facility] for a crisis evaluation, placed on an M1 hold by the psychologist and sent to the [facility] Emergency Department. ADMITTING DIAGNOSES: 1. Major depressive disorder, recurrent, severe. 2. Psychosocial stressors include lack of social support, conflict with roommates, financial stress, strained relationship with her parents partly cultural and due to language barrier. ADMISSION PHYSICAL EXAMINATION: Was done by Dr. Gavino Guevara. Please see his H and P for details . ADMISSION LABS: Were all within normal limits, noncontributory. Urine tox screen was negative for all substances of abuse. Salicylate and acetaminophen level were b oth undetected. HOSPITAL COURSE: When physician met with the patient on her 1st day in the hospital she indicated th at her thoughts about suicide were based upon situational stressors. The main stressor was conflict that she has been having with her roommates because she had told them that she was feeling sad and de pressed and she grabbed a knife and told them that she was going to stab herself and she says that he r roommates showed no concern or interest and that she felt "humiliated" so she ran into the bathroom with a knife because she could not face her roommates. She did not do anything to injure herself. S he put the knife down on the counter. She came out of the bathroom later and said that she felt extr zuri guilty and very "humiliated" by her friend's reactions and has not been on good terms with them ever since. She said that when she went home for the that she felt much better being around her family. She did not feel depressed or sad at all and she says that she had no thoughts about karla neal until the day that she was supposed to return to school and she was in her work study job on [place] and the thought of having to go back home to her apartment and face her roommates she said made fabian etienne feel suicidal and that she told her scouring pads supervisor who sent her to the [facility] for crisis evaluation and that is how she wound up in the ED on an M1 hold. She said that she feels estranged from her parents and cannot really talk to anyone about her depress ion or her suicidal thoughts and that that makes her feel more isolated and vulnerable and leads to w orse depressed feelings. When she was in the hospital the patient told MD that she had contacted her father and that she had had a conversation with him and she disclosed her depression and her suicida l ideation and that he told her that she should come and stay with her family and that she was going to finish out the semester living at home. MD spoke with the patient at length about the risks, bene fits and side effects of being on a selective serotonin reuptake inhibitor to treat her mood. 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 She said that she still had Alysia Kendrick's phone [employer] and her cell phone and she contacted her office while MD was watching. She said she left a message with a call-back number, but she said every time that she attempted to contact Alysia Kendrick it went di rectly to voice mail so she was not able to make an appointment. On day of discharge found out from the managed care nurse that the patient had actually never called her father and that her parents were not aware that she was in the hospital so the managed care nurse used the aerospace mechanic line to communicate with the patient's father while the patient was present and with the patient's consent. Together they left a voice mail message for the dad, explained what had happened to the patient and that she was in the hospital and explained that the followup plan was for the patient to have an intake appointment at [facility] at 12:30 on day of discharge. She was going to go and meet with the director of casework services and get connected with services and the managed care nurse rik carney that if the patient failed to show up for that appointment, that the managed care nurse would call for a welfare check on the patient and this was explained to the father. It is not clear whether the patient actually is going to go home and stay with her family or not. Lisbeth jeffrey said that she planned to take the bus to for her [place] appointment and then she planned to take another bus back to [place] where her family lives. The patient agreed to this as a followup tom n and she allowed the managed care nurse to relay all this information to her father and asked her [facility] to be in touch with her as soon as he was able so that they could arrange different transportation if he was able to come and pick her up so she would not have to take the bus. On 04/29/2017 when MD met with the patient she denied any thoughts, plans or intent to harm herself. She said that she was feeling "much better." She said that she felt more optimistic about being abl e to "handle the stress right now." And said that she felt like "everything will be all right." She says "I am not having any urges to hurt myself anymore." When MD asked about medications patient said "I will wait on meds." She did agree to follow up and se murphy a therapist. On day of discharge, the patient had a bright and cheerful affect. She reported that her mood was "positive." She was future oriented. She denied feeling depressed or sad. She denied having any thoughts, plans or intents to harm herself. She said that it was a "misunderstanding" wh en she told the MD that she had contacted her father. She said that she had tried and left a message but she did say that she was planning to go to her [place] intake appointment on day of discharge , and then go home to stay with her parents where she felt safe and felt comfortable. CONDITION ON DISCHARGE: Patient is in good condition, stable. Her affect is euthymic and appropriate . She is not voicing any depression or sadness. She is not having any thoughts about suicide. DISCHARGE MEDICATIONS: Patient is on levothyroxine 50 mcg which she was on prior to this hospitaliza tion. She is on no other medications because she declined any psychotropic medications. DISCHARGE DIAGNOSES: 1. Major depressive disorder, recurrent, severe. 2. Psychosocial stressors include lack of social support, conflict with her roommates, financial str ess, tense relationship with her parents. DISPOSITION: The patient left the hospital with an RTD bus pass back to [facility]. She has an appoi ntment with a director of casework services at [facility] at 12:30 p.m. FOLLOWUP: Patient is to meet with a director of casework services at [facility] at 12:30 p.m. on 04/30/2017 immediat young after discharge. LEGAL COURSE: The patient was converted to voluntary status prior to the expiration of her M1 hold. /[id number]/MODL
== END 2017-04-30 11:50 | disposition home or self-care (01) | DRG 885 ==
LOC: BBEH 22:45 → F3E 04-28 13:13
DX: F33.2 Major depressive disorder, recurrent severe without psychotic features (principal); E03.9 Hypothyroidism, unspecified; R63.4 Abnormal weight loss
CPT/HCPCS: 80305; G0480